=== PATIENT | female | born 1985 | race Caucasian/White ===

== ENCOUNTER 2022-02-14 16:54 | Emergency (ER) | payer OTHER ==
[~2022-02-14] VITALS: Ht 170.2 cm; Wt 62.6 kg
--- NOTE | 2022-02-14 17:22 | NUR ---
TO ER BED 16, HOME, FOR BODY PAIN, WEAKNESS SINCE FRIDAY, NASAL CONGESTION SINCE FRIDAY. 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 AAOX3, BREATHING EVEN AND NON LABORED, CONNECTED TO MONITOR, AWAITING MD LONG
--- NOTE | 2022-02-14 18:05 | NUR ---
COVID SWAB DONE AND SENT TO LAB
--- NOTE | 2022-02-14 18:25 | NUR ---
CAR PICK UP DRIVER AT BEDSIDE FOR BLOOD DRAW. URINE SPECIMEN COLLECTED, SENT TO LAB.
[2022-02-14 19:06] LABS: CALCIUM, SERUM 9.7 mg/dL (8.5-10.1); CREATININE 0.8 mg/dL (0.6-1.3); MAGNESIUM 1.9 mg/dL (1.8-2.4); POTASSIUM 3.8 mmol/L (3.5-5.1)
[2022-02-14 19:27] LABS: BILIRUBIN,URINE NEGATIVE (NEGATIVE); COLOR,URINE YELLOW (YELLOW); LEUKOCYTE ESTERASE ,URINE NEGATIVE (NEGATIVE); NITRITE, URINE NEGATIVE (NEGATIVE); PROTEIN,URINE NEGATIVE (NEGATIVE); UGLUCOSE NEGATIVE (NEGATIVE); UROBILINOGEN,URINE 0.2 EU/dL (0.2)
[2022-02-14 20:02] LABS: BASOPHILS # (AUTO) 0.1 K/uL (0.0-0.2); BASOPHILS % (AUTO) 0.8 % (0.0-2.0); EOSINOPHILS % (AUTO) 0.2 % (0.0-6.0); HEMATOCRIT 36 % (33-45); LYMPHOCYTES # (AUTO) 1.3 K/uL (0.8-4.8); MEAN CORPUSCULAR HGB CONC 31 g/dl (31.0-36.0); MEAN CORPUSCULAR VOLUME 75 fL (82-100); MONOCYTES # (AUTO) 0.4 K/uL (0.1-1.30); MONOCYTES % (AUTO) 6.9 % (2.0-12.0); NEUTROPHILS # (AUTO) 4.2 K/uL (1.8-8.9); NEUTROPHILS % (AUTO) 70.1 % (43.0-81.0); PLATELET COUNT (AUTO) 262 K/uL (150-450); RED BLOOD CELL COUNT(AUTO) 4.72 MIL/uL (4.0-5.2)
[2022-02-14] MEDS ORDERED: NAPR-1164 PO (21:20)
--- NOTE | 2022-02-14 21:24 | NUR ---
Patient discharged to home in stable condition. Written and verbal after care instructions given. Patient verbalizes understanding of instruction.
[2022-02-14 21:27] VITALS: BP 130/80
[2022-02-14 21:27] LABS: BAND % (MANUAL) 1 % (0.0-5.0); LYMPHOCYTES % (MANUAL) 29 % (16-48); MONOCYTES % (MANUAL) 1 % (0-11.0); NEUTROPHILS % (MANUAL) 69 (42-76)
== END 2022-02-14 21:25 | disposition home or self-care (01) ==
LOC: ER 17:06
DX: R20.2 Paresthesia of skin (principal); M79.10 Myalgia, unspecified site; Z20.822 Contact with and (suspected) exposure to COVID-19; Z88.0 Allergy status to penicillin
CPT/HCPCS: 99283; 87426; 85025; 80048; 82550; 83735; 84703; 81003; 36415; 85007; C9803